=== PATIENT | female | born 1960 | race Caucasian/White ===

== ENCOUNTER 2021-04-20 15:25 | Outpatient (CLI) | payer BC, SELFPAY ==
--- NOTE | 2021-04-20 | USCV_ITS ---
Gaby Jamison Age: 60 Gender: F : 1960 Exam Date: 04/20/2021 15:40 Ordering Phys: Bradly Baum PA-C Technologist: Exam Location: [facility] – [place] Indication: SWELLING HISTORY: Lower extremity swelling. PROCEDURES: Venous duplex imaging was performed in only the left lower extremity. The following venous structures were evaluated: common femoral vein, profunda vein, proximal portion of the greater saphenous vein, superficial femoral vein, and the popliteal vein. In addition, the posterior tibial and peroneal trunk were evaluated. Serial compression, augmentation maneuvers, and spectral Doppler flow evaluation were performed. FINDINGS: Normal 2-D Doppler and augmentation and compressibility throughout the lower extremity venous structures. Additional imaging through the proximal calf veins also reveals no thrombus. Limited evaluation of the greater saphenous vein is patent with no thrombus. CONCLUSIONS No DVT left lower extremity. Dr. Dilma Pugh DO (Electronically Signed) Final Date: 21 Apr 2021 07:53 S
== END 2021-04-20 15:26 | disposition home or self-care (01) ==
LOC: RAD 15:31
PROVIDERS: PCP Nurse Practitioner Family; Visit Provider Physician Assistant Medical
DX: M79.89 Other specified soft tissue disorders (principal)
CPT/HCPCS: 93971

== ENCOUNTER → 2025-03-31 14:38 | Outpatient (BNVA) | payer MEDICARE, SELFPAY | PROVIDERS: PCP Family Medicine; Referring Provider Nurse Practitioner Family; Visit Provider Internal Medicine | DX: I25.118 Atherosclerotic heart disease of native coronary artery with other forms of angina pectoris (principal); I10 Essential (primary) hypertension; I25.2 Old myocardial infarction; E78.2 Mixed hyperlipidemia; F17.201 Nicotine dependence, unspecified, in remission | CPT/HCPCS: 36415; 80048; 85025; 85610; 99215 ==

== ENCOUNTER 2025-04-06 08:35 | Outpatient (CLI) | payer MEDICARE, MEDICAID, SELFPAY ==
[2025-04-06] VITALS (16 sets, daily range): BP systolic 92–181; BP diastolic 66–93; PULSE 49–64; RESP 10–18; TEMP 36.7–37.1; O2SAT 95–96; BMI 37.4
--- NOTE | 2025-04-06 09:00 | XACV_ITS ---
Exam Room: 2 Ht: 173 cm Wt: 112 kg BSA: 2.36 m2 Gender: Female : 1960 Any Known Allergies: Other Exam Priority: Routine Procedure(s): Procedure Description: Diagnostic procedure Procedure Description: PCI procedure Procedure Description: Coronary IVUS Procedure Description: Drug Eluting Coronary Stent Procedure Description: PTCA Procedure Description: Coronary Angiography Diagnostic Cath Status: Elective Diagnostic Findings * Left Main has no significant disease. * Left Anterior Descending has mild to moderate luminal irregularities. * Right Coronary Artery has mild luminal irregularities. * Mid Circumflex: obstructive 70% stenosis, LIANA: 3 flow. * Coronary angiography shows right dominance. PCI Status: Elective PCI Indication: Other Interventional Findings * Procedure detail: We engaged left main artery with XB 3.0 guide catheter. IV heparin was administered to maintain anticoagulation. Initially we attempted to perform IFR however because of malfunction of IFR apparatus, switched to IVUS. IVUS showed a very heavy plaque burden with plaque erosion. We predilated the stenosis with 4.0 x 20 mm semicompliant balloon. Distal embolization was seen occluding distal OM vessel. This was followed by placement of 4.0 x 30 mm resolute Nika drug-eluting stent. Distal vessel was dilated with 2.0 semicompliant balloon. By end of procedure, flow had improved significantly in distal vessel. Guidewire and guide catheter were removed. Patient left the Ocean Lifeguard Specialist in a stable condition. * Mid Circumflex: 70% stenosis treated with a AB TREK 4.00X20 RX BALLOON, and MDT Kristie NIKA 4.0X38 ERNIE. 0% residual stenosis, LIANA: 3 flow. Conclusions 1. Severe mid left circumflex artery stenosis status post successful revascularization with 1 stent.. 2. Mid Circumflex was treated with a Balloon, and Drug Eluting Stent. 3. Distal Circumflex was treated with a Balloon. Recommendations * Will antiplatelet therapy with aspirin and Effient. * Statin therapy. * Outpatient cardiology follow up with cardiology in 2 weeks. Interventional RX Recommendation: PCI w/o planned CABG Diagnostic RX Recommendation: PCI w/o planned CABG Anticoagulation: Heparin Pressures Phase:Rest AO : 108 / 74 ( 91 ) @ 1:27:00 PM 154 / 80 ( 107 ) @ 1:36:00 PM 137 / 77 ( 99 ) @ 1:42:00 PM 138 / 79 ( 101 ) @ 1:49:00 PM 157 / 86 ( 111 ) @ 1:54:00 PM 172 / 89 ( 121 ) @ 2:02:00 PM 159 / 95 ( 124 ) @ 2:09:00 PM 138 / 83 ( 107 ) @ 2:17:00 PM 130 / 74 ( 96 ) @ 2:19:00 PM Clinical Evaluation EBL: 5mL-10mL Procedural Details Pre-Procedure Time Out. Identified patient by full name and date of as verbalized by the patient/guarantor. Does the consent match the physician's order: Yes. Accurate & Complete Informed Consent: Yes. Inpatient/Outpatient History & Physical on Chart: Yes. If H&P is completed, is and addenduem needed: No; If yes, is the addendum complete: N/A. Visualize and Verify Site with Patient/Guarantor: N/A. Relevant Radiology Images available: Yes. Pre-op teaching completed and patient verbalized understanding. The risks, benefits, and alternatives of sedation and/or procedure were discussed by physician. The patient agrees to continue. Procedure started. Current Diagnosis : Chest Pain. [facility] Clinical Fraility Score: 3: Managing Well. [facility]ard Specialist Indications: Worsening Angina. Chest Pain Symptom Assessment: Typical Angina Symptoms. Correct patient, site and procedure confirmed by cath team. Current diagnosis: Chest Pain. PERRLA. Strong, equal hand section leader bilaterally. Lungs clear x 5 lobes. IV Site on Arrival: 20 gauge in the right anticubital. IV Fluids: 0.9% NaCl at KVO. 0 mL infused prior to laboratory operations coordinator. Pre Procedural Pulses: bilateral dorsalis pedis was 2+. Pre Procedural Pulses: bilateral posterior tibial was 2+. Pre Procedural Pulses: bilateral radial was 3+. Oxygen started at 2liters/min via nasal canula. right groin was prepped with chloroprep then draped in the usual sterile fashion. right radial was prepped with chloroprep then draped in the usual sterile fashion. Baseline sample Acquired. HR: 58 BPM. Physician arrived. Physician scrubbed in. Immediate Pre-Procedure Time Out. Correct Patient: Yes; Correct Procedure: Yes; Correct Site: Yes; Correct Patient Position: Yes; Correct Supplies: Yes; Dried Flammable Prep: Yes; Blood Products Available: N/A;. Lidocaine 1% infiltrated to the right radial. Arterial access obtained. A 5 danish TIG catheter in over wire. Multiple views taken of left coronary artery. Catheter redirected to the RCA. Multiple views taken of right coronary artery. Catheter removed over the exchange wire. 6 danish XB 3 guide catheter was inserted over the wire. IFR guidewire was advanced through the guide catheter to lesion in the mid Circ. IVUS catheter inserted OTW. IVUS measurements obtained. IVUS catheter out OTW. Runthrough guidewire was advanced through the guide catheter to lesion in the mid Circ. Inflation number : 1 A AB TREK 4.00X20 RX BALLOON was prepped and advanced across the Mid CX , then inflated to 8 MEHRAN for 0:14 seconds. Inflation number: 2 The AB TREK 4.00X20 RX BALLOON was reinflated across the Mid CX, to 8 MEHRAN for 0:10 seconds. Balloon out. Results checked. Inflation number : 1 A AB MINI TREK 2.00X15 RX BALLOON was prepped and advanced across the Dist CX , then inflated to 8 MEHRAN for 0:10 seconds. Balloon out. ACT drawn. Results out of range high seconds. Therapeutic limits - pre-heparin administration 90-150 seconds and monitoring heparin during a vascular procedure >250 seconds. Inflation Number : 3 A IVETT Flowers NIKA 4.0X38 ERNIE -Lot Number# _[id number] EXP: 09/15/2027 was prepped and advanced across the Mid CX. The stent was deployed at 12 MEHRAN for 0:17 seconds. Stent balloon out over wire. Inflation number: 2 The AB MINI TREK 2.00X15 RX BALLOON was reinflated across the Dist CX, to 8 MEHRAN for 0:11 seconds. Inflation number: 3 The AB MINI TREK 2.00X15 RX BALLOON was reinflated across the Dist CX, to 8 MEHRAN for 0:06 seconds. Inflation number: 4 The AB MINI TREK 2.00X15 RX BALLOON was reinflated across the Dist CX, to 8 MEHRAN for 0:06 seconds. Inflation number: 5 The AB MINI TREK 2.00X15 RX BALLOON was reinflated across the Dist CX, to 10 MEHRAN for 0:10 seconds. Balloon out. Results checked. IVUS catheter inserted OTW. IVUS measurements obtained. IVUS catheter out OTW. Results checked. Wire out. ACT drawn. Results out of range high seconds. Therapeutic limits - pre-heparin administration 90-150 seconds and monitoring heparin during a vascular procedure >250 seconds. Guide catheter out. Physician scrubbed out. A TR Band was successful obtaining hemostatsis at the Right Radial artery insertion site. Medication's Wasted: Nitro = 49.6 mcg. Medication's Wasted: Other = Fentanyl 75mcg Versed 1 mg. Total IV fluids: 55 mL. Post-op diagnosis: Stent to CX. Complications: None. Estimated blood loss: 5mL-10mL. Responsiveness - Normal response to verbal stimuli; alert and oriented, PERRLA. Airway - Unaffected, no intervention required; spontaneous ventilation. Circulation: W/N/L, pulses unchanged. Nausea/Vomiting: No. Procedure completed. Patient transferred by bed to 1st floor. Vital chart was stopped. Access Site Site: Right Radial artery Sheath Size: 6 Fr Hemostasis Method: TR Band Hemostasis Success: Successful Procedure Medications Start: 12:19 PM Stop: 12:19 PM Medication: Versed 1 mg and Fentanyl 25 mcg Amount: 1 Route: I.V. Start: 12:24 PM Stop: 12:24 PM Medication: Nitrogylcerin Amount: 200 mcg Route: I.A. Start: 12:25 PM Stop: 12:25 PM Medication: Heparin Amount: 5000 units Route: I.V. Start: 12:36 PM Stop: 12:36 PM Medication: Versed 1 mg and Fentanyl 25 mcg Amount: 1 Route: I.V. Start: 12:50 PM Stop: 12:50 PM Medication: Heparin Amount: 6000 units Route: I.V. Start: 12:53 PM Stop: 12:53 PM Medication: Nitrogylcerin Amount: 200 mcg Route: I.C. Start: 12:54 PM Stop: 12:54 PM Medication: Fentanyl Amount: 25 mcg Route: I.V. Start: 1:01 PM Stop: 1:01 PM Medication: Fentanyl Amount: 25 mcg Route: I.V. Start: 1:02 PM Stop: 1:02 PM Medication: Aggrastat 12.5 mg/250 mL Amount: 57.5 ml Route: I.V. bolus Start: 1:04 PM Stop: 1:04 PM Medication: Versed Amount: 1 mg Route: I.V. Start: 1:06 PM Stop: 1:06 PM Medication: Fentanyl Amount: 25 mcg Route: I.V. Start: 1:13 PM Stop: 1:13 PM Medication: Aggrastat 12.5 mg/250 mL Amount: 20.7 ml/hr Route: I.V. drip Start: 1:14 PM Stop: 1:14 PM Medication: Cardene Amount: 500 mcg Route: I.C. Start: 1:22 PM Stop: 1:22 PM Medication: Effient Amount: 50 mg Route: P.O. I, the attending physician, have reviewed and verified all procedure medications. Yes, all medications given per verbal order History/Risk Factors Hypertension: Yes Dyslipidemia: Yes Peripheral Arterial Disease (PAD): No Myocardial Infarction (CO): Yes Obesity: No Renal Disease: No Tobacco Use: Former Prior Interventions PCI: Yes CABG: No Valve Surgery: No Date of PCI: 04/14/2024 Report Signatures Finalized by Humza Osei MD on 04/23/2025 06:20 PM
[2025-04-06] MEDS: diphenhydrAMINE 50 mg Capsule PO (09:30)
--- NOTE | 2025-04-06 12:19 | P.HPUD_ITS ---
Surgery/Procedure H&P Update DATE OF PROCEDURE: April 06, 2025 DATE H&P PERFORMED: 04/06/25 H&P UPDATE INFORMATION: I have reviewed H&P completed within last 30 days, I have examined patient prior to procedure and No changes to prior documentation PREOP DIAGNOSIS: Worsening angina PRIMARY INDICATION FOR PROCEDURE: Worsening angina PLANNED PROCEDURE: Operation Date: 04/06/25 10:00 Proposed Procedures p Cardiac Catheterization - [facility] w/wo LV & Coros(Left) - Humza Osei M.D Possible percutaneous coronary intervention PATIENT REASSESSED PRIOR TO SEDATION, WITH NO CHANGE NOTED: Yes PHYSICAL EXAM: alert, oriented x 3, clear to auscultation bilaterally and regu lar rate & rhythm AIRWAY EVAL/ANESTHESIA PLAN: normal airway, ASA III, Local Anesthesia, Risks, benefits & alternatives of sedation and/or procedure discussed and Patient agree s to continue as planned ADDITIONAL INFORMATION: Moderate sedation
--- NOTE | 2025-04-06 13:35 | PM.PROC ---
Procedure Note: Date of procedure: 04/06/25 Pre-procedure diagnosis: Worsening angina Post-procedure diagnosis: other (Severe mid left circumflex artery stenosis confirmed with IVUS S/P PCI with 1 stent) Procedure: INDICATION: Worsening angina concerning for unstable angina. Left main artery has mild luminal irregularities. LAD has diffuse mild to moderate luminal irregularities. Diagonal artery has significant 70% stenosis. It is a small medium sized vessel. Left circumflex artery is a large sized vessel. In the proximal mid segment there is a 60-70% stenosis. iFR had a malfunction. We performed IVUS that showed MLA of 2.9 mm? with plaque burden of 80%. Given given her worsening chest pain symptoms and significant lesion confirmed with IVUS, we proceeded with PCI. 1 stent was placed. After balloon angioplasty, there was some distal embolization into the distal vessel. Flow improved in the distal vessel with Cardene and nitro. Patient has minimal residual chest discomfort. Loaded with Effient. Continue aspirin. 4 hours of Aggrastat. Performing Provider: Humza Osei Estimated blood loss (mL): 10 Complications: None Condition: stable Disposition: floor Coding Level of Care Code Acute Code for Chg Fwd
--- NOTE | 2025-04-06 14:00 | PC.NURSE ---
Patient received from agriculture laboratory technician s/p [facility] with right radial access and tr band in place. Bruising observed proximal to the tr band which is soft. Pulses palpable. No hematoma at this time. Instructed patient on site care with restrictions. Patient verbalized complete understanding
--- NOTE | 2025-04-06 15:30 | PC.NURSE ---
Patient c/o tightness to right wrist. Assess site and noted hematoma/bleeding proximal to tr band placement. Applied manual pressure to site and 2nd tr band. Hematoma resolved. Bruising observed. Reinforced site care instructions. Will continue to monitor
--- NOTE | 2025-04-06 17:16 | XRR_ITS ---
PROCEDURE INFORMATION: Exam: XR Chest Exam date and time: 04/06/2025 5:29 PM Age: 64 years old Clinical indication: Shortness of breath; Additional info: Increased SOB TECHNIQUE: Imaging protocol: Radiologic exam of the chest. Views: 1 view. COMPARISON: No relevant prior studies available. FINDINGS: Lungs: Mild ill-defined fine reticular opacity in the lower lungs bilaterally. Pleural spaces: There is no pleural effusion or pneumothorax. Heart/Mediastinum: There is moderate enlargement of the cardiac silhouette. Vasculature: The thoracic aorta is tortuous and ectatic. Bones/joints: Bones are unremarkable. XR/XR chest 1V portable [id number] IMPRESSION: 1. Enlarged cardiac silhouette. Cardiac enlargement versus pericardial effusion. 2. Mild bilateral lower lung opacity. Nonspecific finding. Possible interstitial edema, chronic interstitial lung disease, low-grade infection or subsegmental atelectasis.
--- NOTE | 2025-04-06 17:41 | ECG_ITS ---
[facility] Pat Name: Gaby Jamison Department: Room: 104 Gender: Female [employer] Bi Consultant: : 1960 Requested By: Humza Osei Order Number: [id number] Reading MD: TONYA CAPELLAN Measurements Intervals [place] Rate: 58 P: 59 CA: 170 QRS: 54 QRSD: 89 T: 73 QT: 428 QTc: 423 Interpretive Statements SINUS BRADYCARDIA NONSPECIFIC ST & T-WAVE ABNORMALITY No previous ECG available for comparison Electronically Signed On 04-08-2025 23:40:55 CDT by TONYA CAPELLAN [id number]
--- NOTE | 2025-04-06 18:41 | PC.NURSE ---
TR band x2 removed at this time. Dr Osei has been into see right wrist bruising. Hematoma resolves. Covered site with 2x2 and coban. Instruction provided regarding site care with restrictions and bruising expectations. Patient c/o mild tenderness to site with palpation. Pulses palpable..
[2025-04-06] MEDS: atorvastatin 40 mg Tablet 80 MG PO (20:28)
[2025-04-07 02:45] LABS: Basophils # 0.1 10^3/uL (0.0-0.1); Basophils % 0.6 %; Eosinophils # 0.1 10^3/uL (0.0-0.8); Eosinophils % 1.4 %; Hematocrit 38.6 % (36-47); Lymphocytes # 1.6 10^3/uL (0.8-4.8); Lymphocytes % 20.4 %; Mean Corpuscular HGB Conc 32.9 g/dL (30-55); Mean Corpuscular Hemoglobin 31.9 pg (27-33); Mean Platelet Volume 10.8 fL (7.4-10.4); Monocytes # 0.6 10^3/uL (0.2-0.9); Monocytes % 8.2 %; Neutrophils % 68.9 %; Nucleated Red Blood Cells % 0 %; Platelet Count 193 10^3/cmm (157-399); Red Blood Count 3.98 10^6/uL (3.85-5.65)
[2025-04-07 03:00] LABS: Blood Urea Nitrogen 15 mg/dL (8-23); Calcium 9.1 mg/dL (8.5-10.5); Carbon Dioxide 24 mmol/L (22-29); Chloride 103 mmol/L (98-107); Creatinine Clr Calc Pharmacy 91.8328; Glucose 94 mg/dL (65-115); Osmolality Calculated 291 mOsm/kg (285-295); Sodium 140 mmol/L (136-145)
[2025-04-07 03:07] LABS: Anion Gap 17.3 (5-19); Potassium 4.3 mmol/L (3.5-5.1)
[2025-04-07 04:29] VITALS: BP 131/65; PULSE 64; RESP 10; TEMP 36.9; O2SAT 94
[2025-04-07 05:48] VITALS: PULSE 74
[2025-04-07] MEDS: prasugrel 10 MG Tablet PO (07:38)
[2025-04-07] MEDS: aspirin 81 mg EC Tablet PO (07:38)
--- NOTE | 2025-04-07 07:41 | PC.NURSE ---
Removed coban from right wrist. Bruising observed with mild tenderness. No hematoma at this time. Instructred patient on site restrictions. She verbalized complete understanding. Will continue to monitor.
[2025-04-07 07:45] VITALS: BP 145/89; PULSE 58; RESP 17; TEMP 36.4; O2SAT 97
[2025-04-07] MEDS: metoprolol succinate ER (24 HR) 25 mg Tablet 12.5 MG PO (07:56)
[2025-04-07] MEDS: lisinopril 10 mg Tablet PO (07:56)
--- NOTE | 2025-04-07 10:29 | P.DS_ITS ---
<Statement entered by Humza Osei M.D - 04/09/25 09:34> Patient was cared for in conjunction with an advanced practice practitioner.? I reviewed the chart and all pertinent data including imaging, telemetry, and laboratory results.? I discussed the patient in detail with the advanced practice practitioner.? Please see? their note for complete discharge summary, testing results and agreed upon plan of care for the patient. Discharge Providers Date of Admission: 04/06/2025 Date of Discharge: April 07, 2025 Attending Provider at Admission: Humza Osei M.D Attending Provider at Discharge: Humza Osei M.D Primary Care Provider: Isrrael Calvo Reason for Visit Reason for Visit: I20.0 Brief History: 64-year-old woman with past medical hist ory of CAD and OK with PCI of OM at outside hospital in March of last year is here for follow-up. According to patient she has been having worsening chest pain symptoms over the last 1 month. Feels like substernal pressure that radiates to the jaw. Last few days it is worsening. Her blood pressure is controlled. She is on aspirin and Effient. She is also experiencing worsening dyspnea on exertion. Hospital Course Hospital Course She was brought in for coronary angiogram yesterday revealing luminal irregularities of the left main and LAD. Significant stenosis of the small to medium caliber diagonal and large left circumflex noted. Left circumflex lesion confirmed with IVUS as significant, treated with ERNIE x 1 and balloon angioplasty. She has had some intermittent chest pain and shortness of breath overnight which has resolved this morning. She is feeling well, blood pressures are well-controlled, renal function is normal. She has not had any complications with right radial cath site. Plan to discharge home today continuing her home medications Effient, aspirin, metoprolol, lisinopril. Follow-up with the cardiology clinic in 7 to 10 days. Lifting restrictions discussed. Physical Exam Const: COMMON NORMALS: no acute distress and patient oriented x3 GENERAL APPEARANCE: cooperative ORIENTATION/CONSCIOUSNESS: Yes awake, Yes oriented to person, Yes oriented to place and Yes oriented to time Chest: COMMONS NORMALS: normal inspection of the chest and normal palpation of entire chest wall CHEST: Yes Symmetrical chest wall rise Resp: COMMON NORMALS: normal respiratory effort, No retractions, No use of accessory muscles and clear to auscultation bilaterally AUSCULTATION: clear to auscultation bilaterally Cardio: COMMON NORMALS: regular rate, regular rhythm, S1 normal heart sound present, S2 normal heart sound present, No gallops present (Cardio), No clicks present (Cardio), No murmurs present (Cardio) and No rub (Cardio) RATE: regular rate RHYTHM: regular rhythm HEART SOUNDS: S1 normal heart sound present and S2 normal heart sound present PERIPHERAL PULSES: radial pulses present positive right 2+ and femoral pulses present positive right 2+ Neuro: COMMON NORMALS: patient oriented x3 and moves all extremities SENSORIUM/ORIENTATION: Yes oriented to person, Yes oriented to place and Yes oriented to time Skin: WOUNDS: Yes surgical site (no hematoma palpable) Details: no odor Discharge Data Studies Completed and Pending Completed Studies During Hospitalization Category Date Time Status XR chest 1V portable [id number] Routine Exams 04/06/25 17:16 Completed Pending at discharge Category Date Time Status GARNISHER request for service Routine Exams 04/06/25 09:00 Taken Radiology Impressions Chest X-Ray 04/06/25 17:16 IMPRESSION: 1. Enlarged cardiac silhouette. Cardiac enlargement versus pericardial effusion. 2. Mild bilateral lower lung opacity. Nonspecific finding. Possible interstitial edema, chronic interstitial lung disease, low-grade infection or subsegmental atelectasis. Laboratory Results WBC 7.70 10^3/uL (3.29-11.43) 04/07/25 02:25 RBC 3.98 10^6/uL (3.85-5.65) 04/07/25 02:25 Hgb 12.70 g/dL (11.27-16.99) 04/07/25 02:25 Hct 38.6 % (36-47) 04/07/25 02:25 MCV 97.0 fl (85-98) 04/07/25 02:25 MCH 31.9 pg (27-33) 04/07/25 02:25 MCHC 32.9 g/dL (30-55) 04/07/25 02:25 RDW 13.0 % (12.1-15.1) 04/07/25 02:25 Plt Count 193 10^3/cmm (157-399) 04/07/25 02:25 MPV 10.8 fL (7.4-10.4) H 04/07/25 02:25 Neut % (Auto) 68.9 % 04/07/25 02:25 Lymph % (Auto) 20.4 % 04/07/25 02:25 Cannon % (Auto) 8.2 % 04/07/25 02:25 Eos % (Auto) 1.4 % 04/07/25 02:25 Baso % (Auto) 0.6 % 04/07/25 02:25 Neut # (Auto) 5.30 10^3/uL (1.8-7.7) 04/07/25 02:25 Lymph # (Auto) 1.6 10^3/uL (0.8-4.8) 04/07/25 02:25 Cannon # (Auto) 0.6 10^3/uL (0.2-0.9) 04/07/25 02:25 Eos # (Auto) 0.1 10^3/uL (0.0-0.8) 04/07/25 02:25 Baso # (Auto) 0.1 10^3/uL (0.0-0.1) 04/07/25 02:25 Nucleated RBC % (auto) 0 % 04/07/25 02:25 Nucleated RBCs # 0.0 /100WBC 04/07/25 02:25 Sodium 140 mmol/L (136-145) 04/07/25 02:25 Potassium 4.3 mmol/L (3.5-5.1) 04/07/25 02:25 Chloride 103 mmol/L (98-107) 04/07/25 02:25 Carbon Dioxide 24 mmol/L (22-29) 04/07/25 02:25 Anion Gap 17.3 (5-19) 04/07/25 02:25 BUN 15 mg/dL (8-23) 04/07/25 02:25 Creatinine 0.8 mg/dL (0.5-0.9) 04/07/25 02:25 GFR Calculation 72.0 mL/min (90-130) L 04/07/25 02:25 Glucose 94 mg/dL (65-115) 04/07/25 02:25 Calculated Osmolality 291 mOsm/kg (285-295) 04/07/25 02:25 Calcium 9.1 mg/dL (8.5-10.5) 04/07/25 02:25 Vitals Last Vital Signs Temp 97.6 F 04/07/25 07:45 Pulse 58 L 04/07/25 07:45 Resp 17 04/07/25 07:45 BP 145/89 04/07/25 07:45 Pulse Ox 97 04/07/25 07:45 O2 Del Method Room Air 04/07/25 07:45 Discharge Plan Discharge Patient Disposition: Home Prescriptions: New atorvastatin 40 mg Tablet 80 mg PO BEDTIME Qty: 90 3RF Continued acetaminophen 500 mg capsule 500 mg PO Q6H PRN (Reason: Pain) aspirin 81 mg tablet,delayed release (DR/EC) 81 mg PO DAILY metoprolol succinate 25 mg tablet extended release 24 hr 12.5 mg PO DAILY prasugrel HCl 10 mg tablet 10 mg PO DAILY citalopram 40 mg tablet 20 mg PO DAILY lisinopril 10 mg tablet 10 mg PO DAILY tramadol 50 mg tablet 50 mg PO TID PRN (Reason: Sleep) vefkwlnglzqi-udgyvkjst-fuvrnrn 6.25-5-10 mg/5 mL syrup 5 ml PO 3XD PRN (Reason: Cough) albuterol sulfate 90 mcg/actuation HFA aerosol inhaler 2 puff inhalation Q6H PRN (Reason: Shortness Of Breath) gabapentin 300 mg capsule 300 mg PO TID tizanidine 2 mg capsule 2 mg PO .q hs PRN (Reason: Muscle Spasm) hydrocodone-acetaminophen 5-325 mg tablet 1 tab PO Q4H PRN (Reason: Pain) nitroglycerin 0.4 mg tablet, sublingual 0.4 mg sublingual Q5M PRN (Reason: chest pain) Qty: 28 0RF Rx Instructions: do not exceed 3 doses per episode omeprazole magnesium [Prilosec OTC] 20 mg Tablet,Delayed Release (Dr/Ec) 20 mg PO DAILY Held diclofenac sodium 75 mg tablet,delayed release (DR/EC) 75 mg PO BID Hold Instructions: discuss with PCP Discharge Orders: Discharge Order (Routine); Ordered 04/07/25 Ordered By: Hiral Thayer Referrals: Nidhi Bell NP [Nurse Practitioner, Cardiology] - 04/15/25 2:00 pm Isrrael Calvo [Primary Care Provider, Family Practice] Diet: Advance as tolerated Activity: Increase activity as tolerated Patient Instructions: Cardiac Rehabilitation (DC), Coronary Intravascular Stent Placement (DC), Chest Pain Stoplight, Post Angiogram Home Care Instructions Activity Restrictions/Additional Instructions: No lifting over 5 pounds with the right arm for the next 4 days. Print Language: Wolof Discharge Attestations Time Spent in Discharge Care*: less than 30 min Quality Metrics Clinical Quality Measures [ No reported AMI, CVA or VTE this stay] Coding Level of Care Code Acute Code for Masha Fwelmer
--- NOTE | 2025-04-07 12:36 | PC.NURSE ---
patient discharged to home. Instruction provided regarding follow up needs, new medications and site care. Patient verbalized complete understanding. Right wrist is bruised but no hematoma observed. New Rx transmitted to [facility] in [place]. Patient taken by wheelchair to private vehicle with family at side. Patient denies pain or needs. No distress observed.
== END 2025-04-07 12:15 | disposition home or self-care (01) ==
LOC: CCL 08:38 → CSU 13:47
PROVIDERS: Nurse Practitioner Family; PCP Family Medicine; Visit Provider Internal Medicine
DX: I25.10 Atherosclerotic heart disease of native coronary artery without angina pectoris (principal); I10 Essential (primary) hypertension; E78.5 Hyperlipidemia, unspecified; I25.2 Old myocardial infarction; Z87.891 Personal history of nicotine dependence; Z79.82 Long term (current) use of aspirin
CPT/HCPCS: 36415; 71045; 80048; 85025; 85347; 92978; 93005; 93454; 96374; 96375; 96376; 99152; 99153; C1725; C1753; C1769; C1874; C1887; C1894; C9600; J1644; J2250; J3010; J3490; J7030; J9999; Q0163; Q9967

== ENCOUNTER → 2025-04-15 13:46 | Outpatient (BNVA) | payer MEDICARE, MEDICAID, SELFPAY | PROVIDERS: PCP Family Medicine; Visit Provider Nurse Practitioner Family | DX: I25.10 Atherosclerotic heart disease of native coronary artery without angina pectoris (principal); Z09 Encounter for follow-up examination after completed treatment for conditions other than malignant neoplasm; E78.2 Mixed hyperlipidemia; I10 Essential (primary) hypertension; Z79.02 Long term (current) use of antithrombotics/antiplatelets; Z87.891 Personal history of nicotine dependence; I25.2 Old myocardial infarction; I20.0 Unstable angina; R06.02 Shortness of breath | CPT/HCPCS: 99213 ==

== ENCOUNTER 2025-05-27 13:56 | Outpatient (CLI) | payer MEDICARE, SELFPAY ==
--- NOTE | 2025-05-27 14:00 | USCV_ITS ---
Gaby Jamison Age: 64 Gender: F : 1960 Exam Date: 05/27/2025 14:17 Ordering Phys: Nidhi Bell NP Technologist: Exam Location: [facility] – [place], [place] Indication: cp sob BP: 130 / 78 HR: 71 Rhythm: Sinus Technical Quality: Adequate MEASUREMENTS (Male / Female) Normal Values 2D ECHO LV Diastolic Diameter PLAX 4.2 cm 4.2 - 5.9 / 3.9 - 5.3 cm IVS Diastolic Thickness 1.4 cm 0.6 - 1.0 / 0.6 - 0.9 cm IVS Systolic Thickness 1.8 cm LVPW Diastolic Thickness 1.4 cm 0.6 - 1.0 / 0.6 - 0.9 cm LVPW Systolic Thickness 1.8 cm LVOT Diameter 2.8 cm LV Ejection Fraction 2D Teich 63.2 % LV Ejection Fraction MOD 2C 57.2 % LV Ejection Fraction 2C AL 55.5 % LA Diameter 4.5 cm RA Systolic Volume 4C AL 39.5 ml RA Systolic Volume 4C MOD 37.1 ml Aorta at Sinotubular Diameter 4.0 cm IVC Diameter 1.6 cm M-MODE LA Ao Ratio MM 1.4 AV Cusp Separation MM 2.5 cm DOPPLER AV Peak Velocity 129.7 cm/s LVOT Peak Velocity 88.0 cm/s AV Area Cont Eq vti 5.3 cm squared AV Area Cont Eq pk 4.1 cm squared MV Peak Velocity 83.0 cm/s MV Area PHT 5.9 cm squared Mitral E to A Ratio 1.0 TV Peak Velocity 185.0 cm/s TR Peak Velocity 212.0 cm/s TR Peak Gradient 18.0 mmHg TV Peak E Velocity 76.0 cm/s PV Peak Velocity 111.0 cm/s FINDINGS Left Ventricle Mildly increased left ventricular cavity size. Normal left ventricular systolic function. Left ventricular ejection fraction is estimated at 55-60 %. Lateral wall mild hypokinesis.Grade I/IV diastolic dysfunction (abnormal relaxation filling pattern), normal to mildly elevated filling pressures. Right Ventricle The right ventricle is normal in size and function. Right Atrium The right atrium is normal in size. Left Atrium Moderately increased left atrial size. Mitral Valve Mitral valve sclerosis. No mitral valve stenosis. Moderate mitral valve regurgitation. Mitral annular calcification. Aortic Valve Structurally normal aortic valve without significant sclerosis or stenosis. There is no aortic regurgitation. Tricuspid Valve Mild tricuspid valve regurgitation. Pulmonic Valve Structurally normal pulmonic valve without significant stenosis. There is no pulmonic regurgitation. Pericardium Normal pericardium without effusion. Aorta Normal ascending aorta dimension. IVC The inferior vena cava appears normal. CONCLUSIONS Mildly increased left ventricular cavity size. Normal left ventricular systolic function. Left ventricular ejection fraction is estimated at 55-60 %. Lateral wall mild hypokinesis.Grade I/IV diastolic dysfunction (abnormal relaxation filling pattern), normal to mildly elevated filling pressures. Mitral valve sclerosis. No mitral valve stenosis. Moderate mitral valve regurgitation. Right atrial pressure is around 5 mm of mercury. Johanne Nunez MD (Electronically Signed) Final Date: 11 June 2025 14:29 S
== END 2025-05-27 13:57 | disposition home or self-care (01) ==
LOC: RAD 13:56
PROVIDERS: PCP Family Medicine; Visit Provider Nurse Practitioner Family
DX: R06.02 Shortness of breath (principal); R93.1 Abnormal findings on diagnostic imaging of heart and coronary circulation; I34.1 Nonrheumatic mitral (valve) prolapse; I34.81 Nonrheumatic mitral (valve) annulus calcification; I07.1 Rheumatic tricuspid insufficiency
CPT/HCPCS: 93306

== ENCOUNTER → 2025-06-08 11:57 | Outpatient (BNVA) | payer MEDICARE, SELFPAY | PROVIDERS: PCP Family Medicine; Visit Provider Nurse Practitioner Family | DX: I25.10 Atherosclerotic heart disease of native coronary artery without angina pectoris (principal); Z09 Encounter for follow-up examination after completed treatment for conditions other than malignant neoplasm; E78.2 Mixed hyperlipidemia; I10 Essential (primary) hypertension; I49.3 Ventricular premature depolarization; Z79.82 Long term (current) use of aspirin; F17.201 Nicotine dependence, unspecified, in remission; I25.2 Old myocardial infarction; I47.20 Ventricular tachycardia, unspecified | CPT/HCPCS: 36415; 84439; 84443; 93005; 99214 ==